=== PATIENT | male | born 1990 | race African-American/Black ===

== ENCOUNTER 2022-02-13 18:52 | Emergency (ER) | payer OTHER ==
[~2022-02-13] VITALS: Ht 177.8 cm; Wt 100.0 kg
[2022-02-13 22:04] VITALS: BP 155/76
== END 2022-02-13 22:56 | disposition home or self-care (01) ==
LOC: EMS 18:52
DX: R41.82 Altered mental status, unspecified (principal); F10.10 Alcohol abuse, uncomplicated; F12.90 Cannabis use, unspecified, uncomplicated; F16.99 Hallucinogen use, unspecified with unspecified hallucinogen-induced disorder; I10 Essential (primary) hypertension
CPT/HCPCS: 99283; Z7502